=== PATIENT | male | born 1960 | race Caucasian/White ===

== ENCOUNTER 2018-09-07 12:34 | Outpatient (CLI) | payer BC | END 2018-09-07 23:59 | disposition home or self-care (01) | LOC: CFH 12:34 | PROVIDERS: ATTEND Internal Medicine Cardiovascular Disease | DX: I25.10 Atherosclerotic heart disease of native coronary artery without angina pectoris (principal); I10 Essential (primary) hypertension; E78.5 Hyperlipidemia, unspecified | CPT/HCPCS: 75571 ==

== ENCOUNTER 2020-04-05 14:02 | Emergency (ER) | payer BC, OTHER ==
[~2020-04-05] VITALS: Ht 175.3 cm; Wt 82.0 kg
--- NOTE | 2020-04-05 14:26 | NUR ---
FIRST CONTACT WITH PT. PT HAD SYNCOPE EPISODE IN THE CAR. THEN PT WOKE UP WITH VOMIT ON PT. ALL SX RESOLVED PER PT. PT'S AOX4. RESPS EVEN AND UNLABORED. ALL MONITORS IN PLACE. CALL LIGHT WITHIN REACH. PT STATED "I JUST QUIT DRINKING ABOUT 1WEEK AGO." PA AT BEDSIDE EVALUATING AT THIS TIME.
[2020-04-05] MEDS ORDERED: ONDANSETRON 2MG/ML, 2ML IVPush ONE (14:30)
[2020-04-05] MEDS ORDERED: SODIUM CHLORIDE 0.9% 1,000ML IVBOLUS ONE ×2 (14:30→15:30)
[2020-04-05] MEDS ORDERED: FAMOTIDINE 20 MG/2 ML IVPush ONE (14:30)
[2020-04-05] MEDS ORDERED: ONDANSETRON 2MG/ML, 2ML ONE (14:50)
[2020-04-05] MEDS ORDERED: FAMOTIDINE 20 MG/2 ML ONE (14:51)
--- NOTE | 2020-04-05 14:57 | NUR ---
PT MEDICATED PER EMAR. NS INFUSING AT THIS TIME. PT TOLERATED WELL.
[2020-04-05 15:10] LABS: MEAN CORPUSCULAR HEMOGLOBIN 34.1 pg (27.5-34.5); MEAN CORPUSCULAR HGB CONC 33.5 g/dL (33.2-36.2); MEAN CORPUSCULAR VOLUME 101.8 fL (81-97); MEAN PLATELET VOLUME 7.9 fL (7.4-10.4); PLATELET COUNT 200 x10^3/uL (130-400); RED BLOOD COUNT 4.42 x10^6/uL (4.38-5.82); RED CELL DISTRIBUTION WIDTH 13.9 % (9.4-14.8)
[2020-04-05 15:22] LABS: ALANINE AMINOTRANSFERASE 133 U/L (12-78); ALBUMIN 3.9 g/dL (3.4-5.0); ANION GAP 11 mmol/L (5-15); CALCIUM 9.3 mg/dL (8.5-10.1); CHLORIDE 102 mmol/L (98-107); CREATININE 2.65 mg/dL (0.7-1.3)
[2020-04-05 15:26] LABS: ALKALINE PHOSPHATASE 83 U/L (45-117); BILIRUBIN,TOTAL 1.3 mg/dL (0.2-1.0); TOTAL PROTEIN 7.3 g/dL (6.4-8.2); TROPONIN I < 0.015 ng/mL (0.000-0.045)
--- NOTE | 2020-04-05 15:35 | NUR ---
2ND L NS INFUSING AT THIS TIME. PT TOLERATED WELL. PA AT BEDSIDE TO EXPLAIN ALL RESULTS AT THIS TIME.
[2020-04-05 15:46] LABS: BAND#(MANUAL) 0.91 x10^3/uL; BANDS%(MANUAL) 7 % (0-7); EOS#(MANUAL) 0.13 x10^3/uL (0.0-0.4); EOS% (MANUAL) 1 % (1-7); LYMPH#(MANUAL) 1.43 x10^3/uL (1-3.4); LYMPHS% (MANUAL) 11 % (22-44); MD YES; MONOS#(MANUAL) 0.91 x10^3/uL (0.3-2.7); MONOS% (MANUAL) 7 % (2-9); SEG#(MANUAL) 9.62 x10^3/uL (1.8-6.8); SEGS% (MANUAL) 74 % (42-75)
[2020-04-05 15:47] LABS: <PLATELET ESTIMATE> ADEQUATE; <PLT MORPHOLOGY> NORMAL PLT MORPH
[2020-04-05 17:16] VITALS: BP 134/91
--- NOTE | 2020-04-05 17:17 | NUR ---
Patient given discharge instructions and they have confirmed that they understand the instructions. Patient ambulatory with steady gait.
== END 2020-04-05 17:18 | disposition home or self-care (01) ==
LOC: ED 14:29
DX: N28.9 Disorder of kidney and ureter, unspecified (principal); E86.0 Dehydration; R55 Syncope and collapse; F10.239 Alcohol dependence with withdrawal, unspecified; R00.0 Tachycardia, unspecified; R10.9 Unspecified abdominal pain; I10 Essential (primary) hypertension; Z87.891 Personal history of nicotine dependence; Y90.9 Presence of alcohol in blood, level not specified
CPT/HCPCS: 36415; 71045; 80053; 80307; 83690; 83880; 84484; 85025; 93005; 96361; 96374; 96375; 99285; J2405; J3490; J7030